=== PATIENT | male | born 1960 | race Caucasian/White ===

== ENCOUNTER 2016-08-02 10:30 | Inpatient (IN) | payer OTHER ==
[~2016-08-02] VITALS: Ht 180.3 cm; Wt 95.7 kg
[2016-08-02] MEDS ORDERED: IBUP200C PO (12:03)
[2016-08-02] MEDS ORDERED: [UNRECOGNIZED DRUG - CODE] MT (12:04)
[2016-08-08 12:10] VITALS: BP 120/84
--- NOTE | 2016-08-14 15:47 | HPE ---
DATE OF ADMISSION: 08/15/2016 CHIEF COMPLAINT: Left hip pain. HISTORY OF PRESENT ILLNESS: This a pleasant 56-year-old male with progressively worsening left hip pain and stiffness. He has failed to improve with conservative treatment. He has elected for surgery for his continued symptoms. He has pain with weightbearing activities and his activities of daily living. X-rays of his hip are notable for advanced osteoarthritis of the left hip joint. He has consented for a left total hip arthroplasty by Dr. Barrett Vines. Medical optimization was performed by Dr. Gala Mazariegos. ALLERGIES: None. CURRENT MEDICATIONS: Ibuprofen as needed. PAST MEDICAL HISTORY: High cholesterol, though he does not take any medication for it. PAST SURGICAL HISTORY: None. 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 Does not smoke or drink. FAMILY HISTORY: Noncontributory. REVIEW OF SYSTEMS: This patient denies chest pain, heart palpitations, cough, wheezing, difficulty breathing and shortness of breath. He denies abdominal pain, nausea, vomiting, diarrhea or constipation. He denies recent upper respiratory infection or urinary tract infection symptoms. He does complain of persistent pain in his left hip and pain with weightbearing activities in the left hip. PHYSICAL EXAMINATION: GENERAL: He is well-nourished, well-developed in no acute distress, adult male patient. He walks with a moderate limp favoring his left lower extremity. He uses a single-leg cane. VITAL SIGNS: He is 71 inches tall, weighs 209 pounds with a temperature of 97.9, blood pressure 148/72, pulse of 80 and respirations of 16. NECK: Was supple without adenopathy or jugular venous distension. There were no carotid bruits appreciated upon auscultation. LUNGS: Were clear to auscultation without rales or wheeze throughout. HEART: Regular rate and rhythm. ABDOMEN: Bowel sounds were present. EXTREMITIES: Examination of the hip revealed intact skin. He had decreased range of motion with internal, external rotation secondary to pain and stiffness. The limb is neurovascularly intact. LABORATORY DATA: UA was within normal limits with a specific gravity of 1.011. Pro time was 11.6, INR 0.84, glucose 105, BUN 17, creatinine 1.03, sodium 140, potassium 4.4. CBC was within normal limits. Sed rate was 5. Urine culture showed no growth and nasal and sinus culture showed normal bi. IMAGING: Chest x-ray showed no acute cardiopulmonary disease processes and EKG came back showing normal sinus rhythm at 77 beats per minute and prior inferior wall PA. The patient was sent for cardiac clearance to Dr. Wagner who cleared him today. IMPRESSION: Symptomatic osteoarthritis of the left hip joint. PLAN: Consented for a left total hip arthroplasty by Dr. Barrett Vines.
[2016-08-15] VITALS (7 sets, daily range): BP systolic 119–135; BP diastolic 68–85
[2016-08-15] MEDS ORDERED: LR 1,000 ML IV SCH ×2 (07:15→12:00)
[2016-08-15] MEDS ORDERED: ATOR40TA PO (08:22)
[2016-08-15] MEDS: LR 1,000 ML IV SCH ×3 (08:24→19:33)
[2016-08-15] MEDS ORDERED: TRANEXAMIC ACID 100 MG/ML 10ML VIAL As Ordered ONE (09:23)
[2016-08-15] MEDS ORDERED: BUPIVACAINE HCL 0.25% 30 ML VIAL As Ordered ONE (09:24)
[2016-08-15] MEDS ORDERED: ceFAZolin 1GM INJ (J0690) As Ordered ONE (09:24)
[2016-08-15] MEDS ORDERED: BUPIVACAINE HCL 0.5% 10 ML VIAL As Ordered ONE (09:24)
[2016-08-15] MEDS ORDERED: EPINEPHrine INJ 1 MG/ML 1ML VIAL/AMP As Ordered ONE (09:24)
[2016-08-15] MEDS ORDERED: fentaNYL 100 MCG/2 ML INJECTION (J3010) As Ordered ONE ×2 (09:24→10:21)
[2016-08-15] MEDS ORDERED: MIDAZOLAM INJ 2 MG/2 ML VIAL (J2250) As Ordered ONE ×2 (10:21→10:29)
[2016-08-15] MEDS ORDERED: ceFAZolin 1GM INJ (J0690) IR ONE (10:24)
[2016-08-15] MEDS ORDERED: BUPIVACAINE HCL 0.5% 10 ML VIAL XX ONE (10:24)
[2016-08-15] MEDS ORDERED: fentaNYL 100 MCG/2 ML INJECTION (J3010) XX ONE (10:24)
[2016-08-15] MEDS ORDERED: EPINEPHrine INJ 1 MG/ML 1ML VIAL/AMP XX ONE (10:24)
[2016-08-15] MEDS ORDERED: TRANEXAMIC ACID 100 MG/ML 10ML VIAL XX ONE (10:24)
[2016-08-15] MEDS ORDERED: BUPIVACAINE HCL 0.25% 30 ML VIAL XX ONE (10:24)
[2016-08-15] MEDS ORDERED: PROPOFOL 200 MG/20 ML VIAL As Ordered ONE (10:29)
[2016-08-15] MEDS ORDERED: PHENYLephrine HCL 500 MCG/5 ML (100MCG/ML) SYRINGE (J2370) As Ordered ONE (10:29)
[2016-08-15] MEDS ORDERED: LIDOCAINE 2% INJ 100 MG/5 ML SDV (FOR ANES.) As Ordered ONE (10:29)
[2016-08-15] MEDS ORDERED: ePHEDrine SULFATE 25 MG/5 ML(5MG/ML) SYRINGE As Ordered ONE (10:29)
[2016-08-15] MEDS ORDERED: MORPHINE PCA 1MG/ML 100ML CADD As Ordered ONE (11:39)
[2016-08-15] MEDS ORDERED: MORPHINE PCA 1MG/ML 100ML CADD IV PRN (12:00)
[2016-08-15] MEDS ORDERED: EPIDURAL/PCA KEYS XX PRN (12:00)
[2016-08-15] MEDS ORDERED: fentaNYL 100 MCG/2 ML INJECTION (J3010) IV PRN (12:00)
[2016-08-15] MEDS ORDERED: PERCOCET 5MG/325MG TAB PO PRN (12:00)
[2016-08-15] MEDS ORDERED: ACETAMINOPHEN TAB 650MG DOSE (2X325MG) PO PRN (12:00)
[2016-08-15] MEDS ORDERED: ONDANSETRON 4MG/2ML VIAL (J2405) IV PRN ×2 (12:00)
[2016-08-15] MEDS ORDERED: NALBUPHINE HCL 10 MG/ML AMP (J2300) IV PRN (12:00)
[2016-08-15] MEDS ORDERED: diphenhydrAMINE INJ 50MG/ML VIAL (J1200) IV PRN (12:00)
[2016-08-15] MEDS ORDERED: PATIENT IS CURRENTLY ON AN ON-Q PAIN BUSTER PAIN RELIEF SYSTEM XX SCH (12:00)
[2016-08-15] MEDS ORDERED: NALOXONE INJ 0.4 MG/1 ML VIAL (J2310) IV PRN (12:00)
[2016-08-15] MEDS ORDERED: METOCLOPRAMIDE INJ 10MG/2ML VIAL (J2765) IV PRN (12:00)
[2016-08-15] MEDS ORDERED: FLEET ENEMA PR PRN (12:00)
--- NOTE | 2016-08-15 12:25 | RO ---
DATE OF PROCEDURE: 08/15/2016 PREOPERATIVE DIAGNOSIS: Left hip osteoarthritis. POSTOPERATIVE DIAGNOSIS: Left hip osteoarthritis. OPERATION PERFORMED: Left total hip replacement. SURGEON: Dr. Barrett Vines. FILTER WASHER AND PRESSER: LETICIA Peralta. HISTORY: A 56-year-old gentleman with advanced osteoarthritis of the hip with superior lateral subluxation presents for elective surgery. FINDING AT SURGERY: Severe osteoarthritis. The acetabulum was protrusio. Required bone graft medially to keep the acetabulum centralized. It was a 60 mm cup with a 36 inside diameter. The stem was a #4 Braxton with a 1.5 36 head neck. Blood loss was 100 mL[address] Mr. Ocasio manipulated the leg and retracted vital structures in order to expedite the surgery. PROCEDURE: After adequate spinal anesthesia, a Napoles catheter was placed, IV antibiotics were administered. He was turned and padded in the [place] left side up then prepped and draped. An anterolateral incision made. Bleeding points controlled with cautery. The IT band divided in line with its fibers. The abductors reflected anteriorly and the hip dislocated. I initially reamed to a Braxton #5 and the neck was divided. Then the acetabulum was exposed. The acetabulum exposure was quite tight and required extensive soft tissue releases all the way down to the iliopsoas. Large osteophytic spurs had to be removed from the acetabulum. The acetabulum was a cylinder and we were at 60 mm before we were rounded up with enough bone contact. I chose a sector cup just in case I did not get secure fixation. Also after thorough irrigation, bone grafting from the reaming ends was utilized to fill a central hole that was 8-10 mm deep. There was no actual [id number] contact. It was just that was where the protrusio part of the erosion was. This area had been roughed up with a 44 mm reamer prior to grafting in order to help with the corporation. Then after irrigation, the 60 mm cup was seated. It was in acceptable position. I would did not require the extra screws so the cup and apex hole eliminator were installed. The anterior osteophyte was trimmed back until it was flush and then we broached the femur, intending to go to a 5, the #4 was quite tight. I tried to go to a 5 but could not seed it any more than about a centimeter above where it should be so I backed off to the 4 and did a trial with a 1.5 and that was actually fairly snug. I had released literally everything except the iliopsoas at that point. We could get him to full extension but he was snug. The trials were then removed. The area was thoroughly irrigated. The permanent stem malleted into place. It seated well and the Guzman taper was dried and engaged. Following this, the hip reduced and irrigated. The capsule was closed with heavy PDS. The PainBuster catheter was threaded into place. The TXA was instilled in the wound for postop hemostasis. The abductors were repaired back to their insertion with heavy PDS. The same suture for IT band. Subcutaneous closed with #2-0 PDS and connie. Dry dressing was applied. The patient was rolled flat. Sequential compression stockings were applied and the patient discharged to the recovery room.
[2016-08-15] MEDS: D5W/0.45% SODIUM CHLORIDE 1,000 ML IV SCH ×2 (12:42→19:36)
--- NOTE | 2016-08-15 16:51 | IPN ---
DATE: 08/15/2016 SUBJECTIVE: The patient tells me he feels well. He is not in any pain. Tells me that his left hip is not bothering him. He denies any chest pain, shortness of breath, fevers, chills, nausea, vomiting, or diarrhea. OBJECTIVE: VITAL SIGNS: Temperature 98, pulse 84, respiratory rate 18, blood pressure (BP) 135/75, oxygen saturation 96% on 2 liters nasal cannula. GENERAL: He is a very pleasant middle-aged male sitting in bed. He is accompanied by his and his mother. The patient is in no acute distress. HEENT: Cranial nerves II-XII are grossly intact. He has moist mucous membranes. No elevation in central venous pressure (CVP). CARDIOVASCULAR: S1, S2, regular. RESPIRATORY: Clear. ABDOMEN: Benign. EXTREMITIES: No clubbing, cyanosis, or edema. His left hip dressing is clean, dry, and intact. Also note the patient has a Napoles catheter in place. No recent laboratory studies. No recent imaging. ASSESSMENT AND PLAN: This is a 56-year-old man postoperative day 0 for a left total hip replacement. 1. Left total hip replacement, postoperative day 0. Management of Napoles catheter, physical therapy (PT), pain control as per Dr. Vines and the orthopedic surgery team. 2. Medical management. The patient does not currently taking any prescription medications. He tells me he was recently suggested to start a statin for high cholesterol, but he has not started this yet. He also tells me that he had an echocardiogram and a stress test completed prior to his operative procedure and was told everything was okay. Thank you for involving us in this interesting patient's care. The patient will be followed by Dr. Gauthier of [facility]. We will continue to follow along with this patient while he remains in hospital.
[2016-08-15] MEDS ORDERED: WARFARIN SOD 5 MG TAB PO SCH (17:00)
[2016-08-16 02:00] VITALS: BP 107/61
[2016-08-16] MEDS: LR 1,000 ML IV SCH ×2 (03:30→09:14)
[2016-08-16] MEDS: D5W/0.45% SODIUM CHLORIDE 1,000 ML IV SCH (04:00)
[2016-08-16 06:00] VITALS: BP 133/62
[2016-08-16] MEDS ORDERED: ONDANSETRON 4 MG TAB (S0181) PO PRN (06:30)
[2016-08-16] MEDS ORDERED: PERCOCET 5MG/325MG TAB PO PRN (06:30)
[2016-08-16 06:55] LABS: MEAN CORPUSCULAR VOLUME 87.9 fl (80.0-96.0); RED CELL DISTRIBUTION WIDTH 14.5 % (11.5-14.5); WHITE BLOOD COUNT 13.8 K/mm3 (4.0-10.0)
[2016-08-16 07:06] LABS: INR 1.08
--- NOTE | 2016-08-16 08:30 | IPNPDOC ---
Assessment/Plan Date Seen The patient was seen on 08/16/16. Problems Problems: (1) Status post total hip replacement, left Status: Acute Response to Treatment: Stable Problem Specific Plan: Monitor Clinically Problem Text: Mgmt per ortho, on anticoagulation, pain controlled. Counseled pt on use of IS. + bowel regimen in place. Please call [facility] if needed. (2) Nicotine dependence Status: Chronic Response to Treatment: Stable Problem Specific Plan: Monitor Clinically Problem Text: Smoking cessation counseling. Plan / VTE VTE Prophylaxis Ordered?: Yes Subjective Review of Systems CC/HPI Pt without new concerns. His pain is reasonably controlled. General: Denies: Fatigue Constitutional: Denies: Chills, Fever Pulmonary: Denies: Cough, Dyspnea Cardiovascular: Denies: Chest Pain, Palpitations Gastrointestinal: Denies: Diarrhea, Nausea, Vomiting Neurological: Denies: Weakness Psych: Reports: Mood Normal Objective Physical Examination General Exam: Positive: Alert, No Acute Distress ENT Exam: Positive: Mucous membr. moist/pink Chest Exam: Positive: Clear to auscultation, Normal air movement Heart Exam: Positive: Normal S1, Normal S2, Rate Normal Abdomen Exam: Positive: Normal bowel sounds, Soft, Negative: Tenderness Extremity Exam: Negative: Edema Vital Signs/I&O Vital Signs Date Time Temp Pulse Resp B/P Pulse Ox O2 Delivery O2 Flow Rate FiO2 08/16/16 07:57 Room Air 08/16/16 06:00 99.7 88 18 133/62 96 2.0 I&O- Last 24 Hours up to 6 AM 08/16/16 06:00 Intake Total 3680 ml Output Total 4025 ml Balance -345 ml Laboratory Data Labs 24H Laboratory Tests 2 08/16/16 06:39: Prothromb Time International Ratio 1.08, Prothrombin Time 14.1 CBC/BMP Laboratory Tests 08/16/16 06:39 Red Blood Count 4.47, Mean Corpuscular Volume 87.9, Mean Corpuscular Hemoglobin 29.0, Mean Corpuscular Hemoglobin Concent 33.0, Red Cell Distribution Width 14.5 LEIF HAYWARD PA-C Aug 16, 2016 08:30
[2016-08-16] MEDS: MOM 30ML SUSPENSION UDC PO SCH (09:13)
[2016-08-16] MEDS: PERCOCET 5MG/325MG TAB PO PRN ×3 (09:14→21:01)
[2016-08-16] MEDS: MIRALAX *UNIT DOSE* 17GM PACKET PO SCH (09:14)
[2016-08-16] MEDS: SENOKOT S TAB PO SCH ×2 (09:14→21:00)
--- NOTE | 2016-08-16 09:56 | REP ---
LEFT HIP SERIES: Three views. HISTORY: Check placement of left hip arthroplasty. Comparison radiographs September 16, 2012. FINDINGS: A left hip arthroplasty is seen in good position on AP and cross-table lateral views of the left hip. Lateral skin connie and soft tissue swelling are seen. IMPRESSION: Status post left hip arthroplasty. Signed by Don Nunez MD 08/16/2016 10:38 A
[2016-08-16 10:00] VITALS: BP 114/70
[2016-08-16 14:00] VITALS: BP 132/81
[2016-08-16] MEDS ORDERED: WARFARIN SOD 5 MG TAB PO ONE (17:00)
[2016-08-16 22:00] VITALS: BP 123/72
[2016-08-17] MEDS: PERCOCET 5MG/325MG TAB PO PRN ×3 (03:45→17:27)
[2016-08-17 06:00] VITALS: BP 110/59
[2016-08-17 06:45] LABS: INR 1.25
[2016-08-17] MEDS: MOM 30ML SUSPENSION UDC PO SCH (08:31)
[2016-08-17] MEDS: SENOKOT S TAB PO SCH ×2 (08:31→19:58)
[2016-08-17] MEDS: MIRALAX *UNIT DOSE* 17GM PACKET PO SCH (08:32)
[2016-08-17] MEDS ORDERED: PERC5TAB6 PO (08:57)
[2016-08-17] MEDS ORDERED: COUM2.5T11 PO (08:57)
[2016-08-17 11:30] VITALS: BP 110/82
[2016-08-17 14:00] VITALS: BP 114/76
[2016-08-17] MEDS ORDERED: WARFARIN SOD 7.5 MG TAB PO ONE (17:00)
[2016-08-17 22:00] VITALS: BP 138/75
[2016-08-18] MEDS: PERCOCET 5MG/325MG TAB PO PRN ×3 (01:57→11:09)
[2016-08-18 06:00] VITALS: BP 129/74
[2016-08-18 06:19] LABS: INR 1.31
[2016-08-18] MEDS ORDERED: MAGNESIUM CITRATE 300 ML BTL PO ONE (06:45)
[2016-08-18] MEDS ORDERED: ENOXAPARIN 40 MG/0.4 ML SYRINGE (J1650) SC ONE (08:00)
[2016-08-18] MEDS: SENOKOT S TAB PO SCH (08:15)
[2016-08-18] MEDS: MOM 30ML SUSPENSION UDC PO SCH (08:15)
[2016-08-18] MEDS: MIRALAX *UNIT DOSE* 17GM PACKET PO SCH (08:15)
--- NOTE | 2016-08-20 14:23 | DSES ---
DATE OF ADMISSION: 08/15/2016 DATE OF DISCHARGE: 08/18/2016 ADMISSION DIAGNOSIS: Left hip OA. OTHER DIAGNOSES: Hyperlipidemia. DISCHARGE DIAGNOSIS: Left hip arthritis status post left total hip arthroplasty. OPERATION PERFORMED: Left total hip arthroplasty. HISTORY: This is a 56-year-old male with progressively worsening left hip pain and stiffness. The patient was admitted for elective left hip replacement. HOSPITAL COURSE: The patient was admitted on the day of surgery and underwent left hip arthroplasty which was uneventful. He did well in the postoperative period and his hospital course was without complications. The patient was up with physical therapy per the protocol and his pain was controlled. On the day of discharge the patient was doing well. He was weightbearing as tolerated, will use adjusted dose Coumadin and JANIA stockings for 30 days postoperatively for DVT prophylaxis and he will use oral medications for pain control. Also he will follow in the office in 2 weeks for staple removal, will resume preoperative medications and diet and he was given instructions for wound monitoring and activity limitations. Please refer to the medical record for further detail.
== END 2016-08-18 11:10 | disposition home health service (06) | DRG 301 ==
LOC: M OR 08-15 07:01 → M MS5PR 08-15 13:10
PROVIDERS: ADMIT Orthopaedic Surgery; ATTEND Orthopaedic Surgery
PROC: 0SRB02A Replacement of Left Hip Joint with Metal on Polyethylene Synthetic Substitute, Uncemented, Open Approach (ICD-10-PCS; principal; 2016-08-15 09:10)
DX: M16.12 Unilateral primary osteoarthritis, left hip (principal); E78.5 Hyperlipidemia, unspecified

== ENCOUNTER → 2016-08-06 | Outpatient (CLI) | payer OTHER ==
[~2016-08-06] VITALS: Ht 180.3 cm; Wt 96.2 kg
[~2016-08-06] MED LIST: IBUP200C PO; LIDOCAINE 2% INJ 100 MG/5 ML SDV (FOR ANES.) As Ordered ONE; PROPOFOL 200 MG/20 ML VIAL As Ordered ONE; [UNRECOGNIZED DRUG - CODE] MT
--- NOTE | 2016-08-06 09:24 | ROOR ---
Patient Name: Brett Eduardo Procedure Date: 08/06/2016 8:45 AM Date of : 1960 Age: 56 Room: M OPP Gender: Male Note Status: Finalized Procedure: Colonoscopy Indications: Screening for colorectal malignant neoplasm Providers: Ilan YADAV MD Referring MD: Gala Mazariegos DO Requesting Provider: Medicines: Monitored Anesthesia Care Complications: No immediate complications. Procedure: Pre-Anesthesia Assessment: - The heart rate, respiratory rate, oxygen saturations, blood pressure, adequacy of pulmonary ventilation, and response to care were monitored throughout the procedure. The Colonoscope was introduced through the anus and advanced to the cecum, identified by appendiceal orifice and ileocecal valve. The colonoscopy was performed without difficulty. The patient tolerated the procedure well. The quality of the bowel preparation was good. Findings: The perianal and digital rectal examinations were normal. (Exam: Complete, Prep: Good or Excellent.) Two sessile polyps were found in the ascending colon. The polyps were 4 to 5 mm in size. These polyps were removed with a hot snare. Resection and retrieval were complete. Three sessile polyps were found in the descending colon and at the splenic flexure. The polyps were 5 to 6 mm in size. These polyps were removed with a hot snare. Resection and retrieval were complete. Six sessile polyps were found in the recto-sigmoid colon and in the sigmoid colon. The polyps were 4 to 7 mm in size. These polyps were removed with a hot snare. Resection and retrieval were complete. Internal hemorrhoids were found during retroflexion. The hemorrhoids were medium-sized. The exam was otherwise without abnormality on direct and retroflexion views. Impression: - (Exam: Complete, Prep: Good or Excellent.) - Two 4 to 5 mm polyps in the ascending colon, removed with a hot snare. Resected and retrieved. - Three 5 to 6 mm polyps in the descending colon and at the splenic flexure, removed with a hot snare. Resected and retrieved. - Six 4 to 7 mm polyps at the recto-sigmoid colon and in the sigmoid colon, removed with a hot snare. Resected and retrieved. - Internal hemorrhoids. - The examination was otherwise normal on direct and retroflexion views. Recommendation: - Repeat colonoscopy in 2 years for surveillance of multiple adenomas. Ilan Yadav MD Ilan YADAV MD 08/06/2016 9:24:44 AM This report has been signed electronically. Number of Addenda: 0 Note Initiated On: 08/06/2016 8:45 AM Estimated Blood Loss: Estimated blood loss: none.
[2016-08-06 09:49] VITALS: BP 143/83
== END ==
LOC: M OPP 08:12
PROVIDERS: ATTEND Internal Medicine Gastroenterology
DX: Z12.11 Encounter for screening for malignant neoplasm of colon (principal); D12.2 Benign neoplasm of ascending colon; D12.4 Benign neoplasm of descending colon; D12.7 Benign neoplasm of rectosigmoid junction; K64.0 First degree hemorrhoids; E78.5 Hyperlipidemia, unspecified; M25.552 Pain in left hip; F17.200 Nicotine dependence, unspecified, uncomplicated

== ENCOUNTER → 2016-08-08 | Outpatient (CLI) | payer OTHER ==
[~2016-08-08] MED LIST changes: -LIDOCAINE 2% INJ 100 MG/5 ML SDV (FOR ANES.) As Ordered ONE; -PROPOFOL 200 MG/20 ML VIAL As Ordered ONE
[2016-08-08 12:42] LABS: MEAN CORPUSCULAR HEMOGLOBIN 29.4 pg (27.0-33.0); MEAN CORPUSCULAR HGB CONC 33.4 g/dl (32.0-36.5); MEAN CORPUSCULAR VOLUME 88.1 fl (80.0-96.0); RED CELL DISTRIBUTION WIDTH 14.5 % (11.5-14.5)
[2016-08-08 12:58] LABS: INR 0.84
[2016-08-08 13:10] LABS: ALBUMIN 3.8 GM/DL (3.2-5.2); ALBUMIN/GLOBULIN RATIO 1.09 (1.00-1.93); ALKALINE PHOSPHATASE 93 U/L (45-117); ALT/SGPT 45 U/L (12-78); ANION GAP 7 MEQ/L (8-16); AST/SGOT 23 U/L (15-37); BILIRUBIN,TOTAL 0.3 MG/DL (0.2-1.0); BLOOD UREA NITROGEN 17 MG/DL (7-18); CALCIUM LEVEL 9.2 MG/DL (8.5-10.1); CARBON DIOXIDE LEVEL 31 MEQ/L (21-32); CHLORIDE LEVEL 102 MEQ/L (98-107); CREATININE FOR GFR 1.03 MG/DL (0.70-1.30); GLOMERULAR FILTRATION RATE > 60.0 (>56); GLUCOSE, FASTING 105 MG/DL (70-105); POTASSIUM SERUM 4.4 MEQ/L (3.5-5.1); SODIUM LEVEL 140 MEQ/L (136-145); TOTAL PROTEIN 7.3 GM/DL (6.4-8.2)
--- NOTE | 2016-08-09 02:48 | REP ---
Clinical: Preoperative assessment; anesthesia protocol . Comparison: None . Technique: PA and lateral. Findings: The mediastinum and cardiac silhouette are normal. The airway is patent and midline. The lung black demonstrate chronic-appearing changes without acute consolidation, effusion, or pneumothorax. The skeletal structures are intact and normal. Impression: 1. No acute cardiopulmonary process. Signed by Demarco Mas MD 08/09/2016 02:39 A
--- NOTE | 2016-08-09 08:32 | ECGEPIP ---
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
== END ==
LOC: M ADMPAT 11:07
PROVIDERS: ATTEND Orthopaedic Surgery
DX: M16.12 Unilateral primary osteoarthritis, left hip (principal)

== ENCOUNTER → 2016-08-22 | Outpatient (REF) | payer OTHER, SELFPAY ==
[~2016-08-22] MED LIST changes: +ATOR40TA PO; +COUM2.5T11 PO; +PERC5TAB6 PO
[2016-08-22 14:10] LABS: INR 1.64
== END ==
LOC: M SHH 13:46
PROVIDERS: ATTEND Nurse Practitioner Family
DX: Z51.81 Encounter for therapeutic drug level monitoring (principal); Z79.01 Long term (current) use of anticoagulants

== ENCOUNTER → 2016-08-27 | Outpatient (REF) | payer OTHER, SELFPAY ==
[2016-08-27 15:23] LABS: INR 2.03
== END ==
LOC: M SHH 15:00
PROVIDERS: ATTEND Nurse Practitioner Family
DX: Z51.81 Encounter for therapeutic drug level monitoring (principal); Z79.01 Long term (current) use of anticoagulants

== ENCOUNTER → 2016-08-30 | Outpatient (REF) | payer OTHER, SELFPAY ==
[2016-08-30 11:37] LABS: INR 2.08
== END ==
LOC: M LABDRAW1 10:49
PROVIDERS: ATTEND Orthopaedic Surgery
DX: Z51.81 Encounter for therapeutic drug level monitoring (principal); Z79.01 Long term (current) use of anticoagulants

== ENCOUNTER → 2016-09-03 | Outpatient (REF) | payer OTHER, SELFPAY ==
[2016-09-03 15:25] LABS: INR 1.9
== END ==
LOC: M SHH 15:00
PROVIDERS: ATTEND Nurse Practitioner Family
DX: Z51.81 Encounter for therapeutic drug level monitoring (principal); Z79.01 Long term (current) use of anticoagulants

== ENCOUNTER → 2016-09-06 | Outpatient (REF) | payer OTHER, SELFPAY ==
[2016-09-06 15:59] LABS: INR 1.86
== END ==
LOC: M SHH 14:49
PROVIDERS: ATTEND Nurse Practitioner Family
DX: Z51.81 Encounter for therapeutic drug level monitoring (principal); Z79.01 Long term (current) use of anticoagulants

== ENCOUNTER → 2016-09-10 | Outpatient (REF) | payer OTHER, SELFPAY ==
[2016-09-10 15:19] LABS: INR 1.86
== END ==
LOC: M SHH 14:41
PROVIDERS: ATTEND Nurse Practitioner Family
DX: Z51.81 Encounter for therapeutic drug level monitoring (principal); Z79.01 Long term (current) use of anticoagulants

== ENCOUNTER → 2016-09-13 | Outpatient (REF) | payer OTHER, SELFPAY ==
[2016-09-13 11:24] LABS: INR 1.22
== END ==
LOC: M SHH 11:05
PROVIDERS: ATTEND Nurse Practitioner Family
DX: Z51.81 Encounter for therapeutic drug level monitoring (principal); Z79.01 Long term (current) use of anticoagulants